=== PATIENT | female | born 1960 | race Caucasian/White ===

== ENCOUNTER 2016-10-08 11:01 | Day surgery (SDC) | payer OTHER ==
[~2016-10-08] VITALS: Ht 167.6 cm; Wt 70.2 kg
[~2016-10-08 11:01] MED LIST: ADVIL200 M1 PO; ADVIL200 MG PO; COLACE100 MG PO; EXCEDRIN MIGRA1 EAC3 PO; FLONASE ALLERG9.9 ML BOTH NARES; LEXAPRO20 MG PO; NORVASC5 MG PO; PLAQUENIL200 MG PO; SYNTHROID125 MCG PO; WOMEN'S DAILY1 EAC4 PO; ZESTRIL20 MG PO
[2016-10-08 11:32] VITALS: BP 107/72
[2016-10-08 14:42] VITALS: BP 139/74
[2016-10-08 15:35] VITALS: BP 121/64
== END 2016-10-08 15:46 | disposition home or self-care (01) ==
LOC: SDC 11:01 → EDSTATUS 15:27 → SDC 15:27 → 2SOUTH 15:27 → SDC 15:46
PROC: 0SBD4ZZ Excision of Left Knee Joint, Percutaneous Endoscopic Approach (ICD-10-PCS; principal; 2016-10-08)
DX: S83.232A Complex tear of medial meniscus, current injury, left knee, initial encounter (principal); M22.42 Chondromalacia patellae, left knee; M25.562 Pain in left knee; I77.3 Arterial fibromuscular dysplasia; I70.1 Atherosclerosis of renal artery; I10 Essential (primary) hypertension; E03.9 Hypothyroidism, unspecified; M32.9 Systemic lupus erythematosus, unspecified; F32.9 Major depressive disorder, single episode, unspecified; Z82.49 Family history of ischemic heart disease and other diseases of the circulatory system; Z83.3 Family history of diabetes mellitus; Z80.9 Family history of malignant neoplasm, unspecified
CPT/HCPCS: J0171; J1100; J1885; J2250; J2405; J3010; S0020

== ENCOUNTER 2018-03-03 12:34 | Day surgery (SDC) | payer OTHER ==
[~2018-03-03] VITALS: Ht 167.6 cm; Wt 72.6 kg
[~2018-03-03 12:34] MED LIST changes: +OSTEO BI-FLEX1 EAC1 PO
[2018-03-03 13:00] VITALS: BP 127/82
[2018-03-03 17:14] VITALS: BP 114/64
[2018-03-03 18:27] VITALS: BP 102/55
== END 2018-03-03 18:50 | disposition home or self-care (01) ==
LOC: SDC 12:34
PROC: 0SBD4ZZ Excision of Left Knee Joint, Percutaneous Endoscopic Approach (ICD-10-PCS; principal; 2018-03-03)
DX: S83.232A Complex tear of medial meniscus, current injury, left knee, initial encounter (principal); M22.42 Chondromalacia patellae, left knee; M25.562 Pain in left knee; M32.9 Systemic lupus erythematosus, unspecified; E03.9 Hypothyroidism, unspecified; D84.9 Immunodeficiency, unspecified; Z79.899 Other long term (current) drug therapy; I70.1 Atherosclerosis of renal artery; Z98.890 Other specified postprocedural states; Z83.3 Family history of diabetes mellitus; Z82.49 Family history of ischemic heart disease and other diseases of the circulatory system
CPT/HCPCS: J0171; J0690; J1100; J1170; J1885; J2250; J2405; J2765; J3010; J7120; Q0175